=== PATIENT | female | born 1970 | race Caucasian/White ===

== ENCOUNTER → 2023-03-16 07:31 | Outpatient (CLI) | payer OTHER, SELFPAY ==
--- NOTE | 2023-03-16 | DI.MRI.S_ITS ---
PROCEDURE: MRFOOT LT WO CON INDICATIONS: TURF TOE/SPRAIN LEFT HALLUX HYPEREXTENSION TECHNIQUE: Noncontrast sagittal T1 spin echo and T2 fast spin echo with fat saturation, long-axis T1 spin echo and T2 fast spin echo with fat saturation, short-axis T1 spin echo and T2 fast spin echo with fat saturation through the forefoot. COMPARISON: None. FINDINGS: Image quality: Excellent. Bones and joints: Mild midfoot and forefoot joint osteoarthritis is seen with joint space narrowing and subchondral sclerosis more notably involving 1st MTP joint and articulation between 1st metatarsal head and sesamoid bones. No marrow edema. No acute fracture or dislocation. No metatarsal stress fractures. Soft tissues: The visualized plantar foot muscles demonstrate normal signal and bulk. Visualized flexor and extensor tendons appear intact, without tenosynovitis. The distal insertions of the peroneus brevis and longus tendons appear intact. The principal Lisfranc ligament appears intact. No soft tissue ganglion cysts or bursal fluid collections. Medial and lateral collateral ligaments of 1st MTP joint are thickened at their proximal insertion with adjacent soft tissue edema. Sagittal images demonstrate no evidence for plantar plate tears in 2nd through 5th toe. There is attenuated appearance of lateral sesamoid phalangeal ligament of 1st MTP joint at its distal insertion suggestive of low to moderate grade partial-thickness tear. IMPRESSION: 1. Mild midfoot and forefoot joint osteoarthritis most notably in 1st toe as above. No fracture or dislocation. No metatarsal stress fractures. 2. Suggestion of sprain/low-grade partial-thickness tear involving medial and lateral collateral ligament of 1st MTP joint at their proximal insertion. 3. Suggestion of low to moderate grade partial-thickness tear involving distal lateral sesamoid phalangeal ligament of 1st MTP joint suggestive of low to moderate grade turf toe injury. 4. Extensor and flexor tendons of midfoot and forefoot are intact. Dictated by: Oleksandr Gibson M.D. on 03/16/2023 at 10:20 Approved by: Oleksandr Gibson M.D. on 03/16/2023 at 10:24
== END ==
PROVIDERS: PCP Physician Assistant; Referring Provider Orthopaedic Surgery Foot and Ankle Surgery; Visit Provider Orthopaedic Surgery Foot and Ankle Surgery
DX: S93.502A Unspecified sprain of left great toe, initial encounter (principal); M19.072 Primary osteoarthritis, left ankle and foot; X58.XXXA Exposure to other specified factors, initial encounter
CPT/HCPCS: 73718

== ENCOUNTER → 2023-04-16 08:51 | Outpatient (CLI) | payer OTHER, SELFPAY ==
--- NOTE | 2023-04-16 08:54 | DI.MRI.S_ITS ---
PROCEDURE: MR ANKLE RT WO CON INDICATIONS: Plantar fascial fibromatosis TECHNIQUE: Noncontrast sagittal T1 spin echo and T2 fast spin echo with fat saturation, axial proton density fast spin echo and T2 fast spin echo with fat saturation, coronal T1 spin echo and T2 fast spin echo with fat saturation through the ankle/hindfoot. COMPARISON: [facility], CR, XR FOOT 3 VIEWS WEIGHT BEARING BILATERAL, 03/03/2023, 16:02. FINDINGS: Image quality: Excellent. Bones and joints: No bone marrow contusions or fractures. No hindfoot coalitions. No osteochondral injuries of the talar dome. Medial structures: The deep and superficial layers of the deltoid ligament appear intact. The spring ligament components are intact. Mild distal posterior tibialis tenosynovitis. The flexor digitorum longus and flexor hallucis longus tendons are intact. The posterior tibial neurovascular bundle appears normal within the tarsal tunnel, without extrinsic mass effect. Lateral structures: The anterior talofibular, calcaneofibular, and posterior talofibular ligaments appear intact. The anterior and posterior tibiofibular ligaments appear intact. The peroneus longus and brevis tendons demonstrate mild tendinosis and tenosynovitis. Lobular ganglion cyst extending superiorly from the lateral sinus tarsi measures up to 14 x 7 x 13 mm. The sinus tarsi demonstrates normal fatty signal. Anterior structures: The tibialis anterior, extensor hallucis longus, and extensor digitorum longus tendons appear intact. Posterior and plantar structures: Achilles tendon is intact. Mild thickening of the proximal plantar fascia is most likely related to chronic fasciopathy. No focal fibroma is seen. No abductor digiti quinti muscle atrophy to suggest Leon neuropathy. IMPRESSION: 1. Mild chronic proximal plantar fasciitis. No focal plantar fascial fibroma is seen. 2. Mild distal posterior tibialis tenosynovitis. 3. Mild tendinosis and tenosynovitis of the peroneus brevis and longus tendons. 4. Lobular ganglion cyst extending superiorly from the lateral sinus tarsi measures approximately 14 x 7 x 13 mm. Approved by: Meño Mcmanus M.D. on 04/16/2023 at 11:37
== END ==
LOC: MRI 08:53
PROVIDERS: PCP Physician Assistant; Referring Provider Orthopaedic Surgery Foot and Ankle Surgery; Visit Provider Orthopaedic Surgery Foot and Ankle Surgery
DX: M72.2 Plantar fascial fibromatosis (principal); M65.871 Other synovitis and tenosynovitis, right ankle and foot; M67.471 Ganglion, right ankle and foot
CPT/HCPCS: 73721